=== PATIENT | female | born 1965 | race Caucasian/White ===

== ENCOUNTER 2019-06-29 22:37 | Emergency (ER) | payer BC ==
[2019-06-29] MEDS ORDERED: DUONEB 0.5-3 MG/3 ml Neb IH ONE (23:03)
--- NOTE | 2019-06-29 23:04 | ERPHSYRPT ---
- History of Present Illness Time Seen by Provider: 06/29/19 22:49 Source: patient Exam Limitations: no limitations Patient Subjective Stated Complaint: pt states she has had a cough for 3 weeks and rib pain for 5 days. states rib pain is worse when coughing and has been increasing. states pain is worse on the lt side and worse when trying to take a deep breath. Triage Nursing Assessment: pt alert and oriented, answers questions approp. pt ambulatory with steady gait noted. respirations nonlabored. pt not able to take deep breath when asked d/t pain in ribs. tenderness noted to bilat ribs with light palpation. Physician History: 53 years old female presented in the ER with chief complaint of 3 weeks history of ongoing nonproductive cough. She was evaluated at primary care 2 days ago, currently on doxycycline. Patient reports since starting doxycycline her cough is better but she is having bilateral lower ribs pain with deep breathing and coughing since yesterday. she describes this as a sharp nature moderate intensity pain, aggravated with movement/deep breathing/palpation and better with taking shallow breaths and being still. No fever or chills reported. Denies any shortness of breath. No URI symptoms. Cough Quality/Degree: moderate, dry cough Possible Cause: unknown cause Modifying Factors: Improves With: coughing, deep breath Associated Symptoms: chest pain/soreness, cough, No fever, No chills, No facial pain, No lightheadedness, No nasal drainage, No shortness of breath Allergies/Adverse Reactions: meperidine HCl [From Demerol] Allergy (Verified 06/29/19 22:56) Home Medications: Bupropion HCl [Wellbutrin Xl] 300 mg PO DAILY 10/19/13 [History] Hx Tetanus, Diphtheria Vaccination/Date Given: Yes Hx Influenza Vaccination/Date Given: No Hx Pneumococcal Vaccination/Date Given: No Immunizations Up to Date: Yes - Review of Systems Constitutional: No Symptoms Eyes: No Symptoms Ears, Nose, & Throat: No Symptoms Respiratory: Cough, No Wheezing Cardiac: Chest Pain Abdominal/Gastrointestinal: No Symptoms Genitourinary Symptoms: No Symptoms Musculoskeletal: Other (ribs) Skin: No Symptoms Neurological: No Symptoms Psychological: No Symptoms Endocrine: No Symptoms Hematologic/Lymphatic: No Symptoms Immunological/Allergic: No Symptoms - Past Medical History Pertinent Past Medical History: Yes Neurological History: No Pertinent History ENT History: No Pertinent History Cardiac History: No Pertinent History Respiratory History: No Pertinent History Endocrine Medical History: No Pertinent History Musculoskeletal History: No Pertinent History GI Medical History: No Pertinent History History: No Pertinent History Psycho-Social History: Depression Female Reproductive Disorders: No Pertinent History - Past Surgical History Past Surgical History: Yes Neuro Surgical History: No Pertinent History Cardiac: No Pertinent History Respiratory: No Pertinent History Gastrointestinal: Cholecystectomy Musculoskeletal: No Pertinent History Female Surgical History: Section, Hysterectomy Other Surgical History: SPINAL INFUSION 8 YEARS AGO - Social History Smoking Status: Never smoker Exposure to second hand smoke: No Drug Use: none Patient Lives Alone: No - Female History Hx Last Menstrual Period: post Hx Now: No - Nursing Vital Signs Nursing Vital Signs: Initial Vital Signs Temperature 97.5 F 06/29/19 22:42 Pulse Rate 81 06/29/19 22:42 Respiratory Rate 18 06/29/19 22:42 Blood Pressure 153/96 06/29/19 22:42 O2 Sat by Pulse Oximetry 100 06/29/19 22:42 Pain Scale Pain Intensity 9 - Physical Exam General Appearance: no apparent distress Eye Exam: eyes nml inspection Ears, Nose, Throat Exam: normal ENT inspection, TMs normal, pharynx normal Neck Exam: normal inspection, non-tender, supple, full range of motion Respiratory Exam: chest tenderness (bilateral lateral lower ribs with no crepitis/swelling/rash), lungs clear, airway intact, No respiratory distress Cardiovascular Exam: regular rate/rhythm, normal heart sounds, normal peripheral pulses Gastrointestinal/Abdomen Exam: soft, normal bowel sounds, No tenderness Back Exam: normal inspection, normal range of motion Extremity Exam: normal inspection, normal range of motion Neurologic Exam: alert, oriented x 3, cooperative Skin Exam: normal color SpO2 Interpretation: normal SpO2: 100 O2 Delivery: Room Air Ordered Tests: Active Orders 24 hr Category Date Time Status CHEST 2 VIEWS (PA AND LAT) Stat Exams 06/29/19 22:57 Taken CBC W DIFF Stat Lab 06/29/19 23:16 Completed Peak Expiratory Flow Rate ONCE RT 06/29/19 23:09 Active Respiratory Therapy Assessment DAILY RT 06/29/19 23:09 Active Medication Summary Discontinued Medications Generic Name Dose Route Start Last Admin Trade Name Freq PRN Reason Stop Dose Admin Albuterol/Ipratropium 3 ml 06/29/19 22:59 06/29/19 23:05 Duoneb 0.5-3 Mg/3 Ml Neb IH 06/29/19 23:00 3 ml STAT ONE Administration Albuterol/Ipratropium Confirm 06/29/19 23:03 Duoneb 0.5-3 Mg/3 Ml Neb Administered 06/29/19 23:04 Dose 3 ml IH .STK-MED ONE Ketorolac Tromethamine 30 mg 06/29/19 22:59 06/29/19 23:19 Toradol 30 Mg Injection IV 06/29/19 23:00 30 mg STAT ONE Administration Ketorolac Tromethamine Confirm 06/29/19 23:16 Toradol 30 Mg Injection Administered 06/29/19 23:17 Dose 30 mg .ROUTE .STK-MED ONE Methylprednisolone Sodium Succinate 125 mg 06/29/19 22:58 06/29/19 23:19 Solu-Medrol 125 Mg IV 06/29/19 22:59 125 mg STAT ONE Administration Methylprednisolone Sodium Succinate Confirm 06/29/19 23:16 Solu-Medrol 125 Mg Administered 06/29/19 23:17 Dose 125 mg .ROUTE .STK-MED ONE Lab/Rad Data: Laboratory Result Diagrams 06/29/19 23:16 06/29/19 23:18 Laboratory Results 06/29/19 06/29/19 Range/Units 23:18 23:16 WBC 7.5 (4.0-10.5) K/mm3 RBC 4.05 L (4.1-5.4) M/mm3 Hgb 12.1 (12.0-16.0) gm/dl Hct 38.2 (35-47) % MCV 94.3 (78-100) fl MCH 29.8 (26-32) pg MCHC 31.7 L (32-36) g/dl RDW 14.5 H (11.5-14.0) % Plt Count 364 (150-450) K/mm3 MPV 9.2 (6-9.5) fl Gran % 52.1 (36.0-66.0) % Eos # (Auto) 0.11 (0-0.5) Absolute Lymphs (auto) 2.42 (1.0-4.6) Absolute Monos (auto) 1.01 (0.0-1.3) Lymphocytes % 32.4 (24.0-44.0) % Monocytes % 13.5 H (0.0-12.0) % Eosinophils % 1.5 (0.00-5.0) % Basophils % 0.5 (0.0-0.4) % Absolute Granulocytes 3.88 (1.4-6.9) Basophils # 0.04 (0-0.4) Sodium Direct 141 (138-146) mmol/L Potassium 3.6 (3.5-4.9) mmol/L Chloride 102 (98-109) mmol/L Carbon Dioxide 26 (24-29) mmol/L Venous BUN 18 (8-26) mg/dL Creatinine 0.8 (0.6-1.3) mg/dL Glucose 109 H (70-105) mg/dL Ionized Calcium 1.17 (1.12-1.32) mmol/L - Progress Progress: improved, re-examined Air Movement: good Progress Note: she is given DuoNeb along with Solu-Medrol and Toradol. On reevaluation the patient is feeling better. She still have some discomfort with deep breathing and movements of chest. I believe she has some pleuritic inflammation. I did not appreciate any focal consolidation on chest x-ray but no obvious displaced rib fractures. I were start her on short course of steroids and recommended taking Tylenol Ibuprofen as needed. I would also give her inhaler as well. Her symptoms are clearly infectious etiology, do not think cardiac in nature at all. Do not think she needs any PE workup as of right now with these symptoms. Discussed signs and was worsening Adenocard the ER which he seemed understanding. Stable for discharge. 06/29/19 23:46 Blood Culture(s) Obtained: No Antibiotics given: No Counseled pt/family regarding: lab results, diagnosis, need for follow-up, rad results - Departure Departure Disposition: Home Clinical Impression: Bronchitis Condition: Stable Critical Care Time: No Referrals: JIMMY TIMMONS MD [Primary Care Provider] - Follow Up with PCP (1-2 days for evaluation) Instructions: Cough, Adult (DC) Additional Instructions: take Tylenol/ibuprofen as needed. Follow up with primary care physician for evaluation. Return to ER for any worsening. Prescriptions: Albuterol 8 gm Mdi Hfa [Ventolin Hfa MDI] 8 gm IH Q4H #1 hfa.[email or web address] Prednisone 20 mg [Deltasone 20 mg] 60 mg PO DAILY #15 tablet
[2019-06-29] MEDS: DUONEB 0.5-3 MG/3 ml Neb IH ONE (23:05)
[2019-06-29] MEDS ORDERED: solu-MEDROL 125 MG ONE (23:16)
[2019-06-29] MEDS ORDERED: TORAdol 30 mg Injection ONE (23:16)
[2019-06-29 23:18] VITALS: PULSE 79
[2019-06-29] MEDS: TORAdol 30 mg Injection IV ONE (23:19)
[2019-06-29] MEDS: solu-MEDROL 125 MG IV ONE (23:19)
[2019-06-29 23:22] LABS: Absolute Neutrophil Ct (ANC) 3.88 (1.4-6.9); BASOPHIL % 0.5 % (0.0-0.4); Basophil (Absolute #) 0.04 (0-0.4); Eosinophil % 1.5 % (0.00-5.0); Eosinophil (Absolute #) 0.11 (0-0.5); Hematocrit 38.2 % (35-47); Hemoglobin 12.1 gm/dl (12.0-16.0); Lymphocyte (Absolute #) 2.42 (1.0-4.6); Lymphocytes % 32.4 % (24.0-44.0); Mean Cell Volume 94.3 fl (78-100); Mean Corpuscular Hgb Concent. 31.7 g/dl (32-36); Mean Platelet Volume 9.2 fl (6-9.5); Monocyte (Absolute #) 1.01 (0.0-1.3); Monocytes % 13.5 % (0.0-12.0); Neutrophil % 52.1 % (36.0-66.0); Platelet Count 364 K/mm3 (150-450); Red Blood Count 4.05 M/mm3 (4.1-5.4); Red Cell Distribution Width 14.5 % (11.5-14.0); White Blood Count 7.5 K/mm3 (4.0-10.5)
[2019-06-29 23:24] LABS: Mean Corpuscular Hemoglobin 29.8 pg (26-32)
[2019-06-29 23:30] LABS: ISTAT CREA 0.8 mg/dL (0.6-1.3)
[2019-06-29 23:55] VITALS: BP 122/81; O2SAT 97
[2019-06-30] MEDS ORDERED: Ventolin Hfa MDI IH ONE (00:04)
[2019-06-30] MEDS: Ventolin Hfa MDI IH ONE (00:09)
--- NOTE | 2019-06-30 08:46 | XRAY ---
Indication: Cough and fever 2 weeks. Comparison: October 19, 2013. PA/lateral chest less inflated with new left base subsegmental atelectasis/scarring. Stable left mid lung calcified granuloma. No focal infiltrate, consolidation, or large effusion. Heart is not enlarged. Bony thorax intact. Impression: Nonacute chest with again evidence for old granulomatous disease.
== END 2019-06-30 00:21 | disposition home or self-care (01) ==
LOC: ED 22:37
DX: J40 Bronchitis, not specified as acute or chronic (principal)
CPT/HCPCS: 36415; 71046; 80047; 85025; 94150; 94640; 96374; 96375; 99284; J1885; J2930; A9270-GY

== ENCOUNTER 2024-08-31 17:13 | Emergency (ER) | payer OTHER ==
[2024-08-31 17:24] VITALS: PULSE 114; TEMP 100.1
--- NOTE | 2024-08-31 17:33 | ERPHSYRPT ---
- History of Present Illness Time Seen by Provider: 08/31/24 17:33 Source: patient, family Exam Limitations: no limitations Patient Subjective Stated Complaint: Pt c/o of cough, body aches, thigh aches, and vomiting Triage Nursing Assessment: Pt was brought to the ER by her son, tachycardic, febrile, rates pain as 9/10, pulses normal, skin pale/hot/d, no difficulty breathing, thigh pain, vomiting, denies diarrhea, doesn't appear to be in any di stress Physician History: Pt had onset of vomiting and body aches today especially both thighs and fever. Discussed with pt and available family risks and benefits of testing/Tx including CBC, CMP, UA, Amylase, Lipase, lactate, CPK, swabs for Covid, RSV, Flu and Strep, pain med - toradol, ondansitron, IVF, , and they wish to proceed so these are ordered. Son is here in ER as independent source for Hx. Results discussed with pt and available family. Timing/Duration: today Severity: moderate Associated Symptoms: nausea, vomiting, fever, loss of appetite, malaise Allergies/Adverse Reactions: meperidine HCl [From Demerol] Allergy (Verified 08/31/24 17:24) Home Medications: buPROPion HCL [Wellbutrin Xl] 450 mg PO DAILY 10/19/13 [History] Hx Tetanus, Diphtheria Vaccination/Date Given: Yes Hx Influenza Vaccination/Date Given: No Hx Pneumococcal Vaccination/Date Given: No Travel Risk - International Travel Have you traveled outside of the country in past 3 weeks: No - Emerging Infectious Disease Are you exhibiting symptoms associated with any current EIDs: Yes Symptoms: Headaches/Body Aches/, Vomitting - Review of Systems Constitutional: Fever, No Chills Eyes: No Symptoms Ears, Nose, & Throat: No Symptoms Respiratory: No Cough, No Dyspnea Cardiac: No Chest Pain, No Edema, No Syncope Abdominal/Gastrointestinal: Nausea, Vomiting, No Abdominal Pain, No Diarrhea Genitourinary Symptoms: No Dysuria Musculoskeletal: No Back Pain, No Neck Pain Skin: No Rash Neurological: No Dizziness, No Focal Weakness, No Sensory Changes Psychological: No Symptoms Endocrine: No Symptoms Hematologic/Lymphatic: No Symptoms Immunological/Allergic: No Symptoms All Other Systems: Reviewed and Negative - Past Medical History Pertinent Past Medical History: Yes Neurological History: No Pertinent History ENT History: No Pertinent History Cardiac History: No Pertinent History Respiratory History: No Pertinent History Endocrine Medical History: No Pertinent History Musculoskeletal History: No Pertinent History GI Medical History: No Pertinent History History: No Pertinent History Psycho-Social History: Depression Female Reproductive Disorders: No Pertinent History - Past Surgical History Past Surgical History: Yes Neuro Surgical History: No Pertinent History Cardiac: No Pertinent History Respiratory: No Pertinent History Gastrointestinal: Cholecystectomy Musculoskeletal: No Pertinent History Female Surgical History: Section, Hysterectomy Other Surgical History: SPINAL INFUSION 8 YEARS AGO - Social History Smoking Status: Never smoker Exposure to second hand smoke: No Drug Use: none Patient Lives Alone: No - Social Determinants of Health Will the patient participate in the screening: Yes Do you worry about a steady place to live?: No Do you have any problems with any of the following?: No known problems In the past 12 months,have you had to go without utilities?: No Transportation Issues: No Has anyone in your support network made you feel unsafe?: No Have you or anyone in your house had to go without enough: No - Nursing Vital Signs Nursing Vital Signs: Initial Vital Signs Temperature 100.1 F 08/31/24 17:19 Pulse Rate 114 H 08/31/24 17:19 Blood Pressure 120/71 08/31/24 17:19 O2 Sat by Pulse Oximetry 96 08/31/24 17:19 Pain Scale Pain Intensity 9 - Physical Exam General Appearance: no apparent distress, alert Eye Exam: PERRL/EOMI, eyes nml inspection Ears, Nose, Throat Exam: normal ENT inspection, TMs normal, pharynx normal, moist mucous membranes Neck Exam: normal inspection, non-tender, supple, full range of motion Respiratory Exam: normal breath sounds, lungs clear, No respiratory distress Cardiovascular Exam: regular rate/rhythm, normal heart sounds, normal peripheral pulses Gastrointestinal/Abdomen Exam: soft, normal bowel sounds, No tenderness, No mass Pelvic Exam: deferred Rectal Exam: deferred Back Exam: normal inspection, normal range of motion, No CVA tenderness, No vertebral tenderness Extremity Exam: normal inspection, normal range of motion, pelvis stable Neurologic Exam: alert, oriented x 3, cooperative, normal mood/affect, nml cerebellar function, nml station & gait, sensation nml, No motor deficits Skin Exam: normal color, warm, dry, No rash Lymphatic Exam: No adenopathy SpO2 Interpretation: normal SpO2: 96 O2 Delivery: Room Air - Course Nursing assessment & vital signs reviewed: Yes - Radiology Exams Chest X-ray Interpretation: Interpreted by me, Infiltrates (bilateral.) Ordered Tests: Active Orders 24 hr Category Date Time Status IV Insertion STAT Care 08/31/24 17:59 Active CHEST 1 VIEW (PORTABLE) Stat Exams 08/31/24 20:59 Taken AMYLASE Stat Lab 08/31/24 19:00 Completed CBC W DIFF Stat Lab 08/31/24 19:00 Completed CK (IN-HOUSE) [CK-Creatinine Phosphokinase] Stat Lab 08/31/24 19:00 Completed CMP Stat Lab 08/31/24 19:00 Completed CULTURE,URINE Stat Lab 08/31/24 20:56 Received LIPASE Stat Lab 08/31/24 19:00 Completed Lactic Acid Stat Lab 08/31/24 18:45 Completed UA W/RFX UR CULTURE Stat Lab 08/31/24 20:56 Completed Medication Summary Generic Name Dose Route Start Last Admin Trade Name Freq PRN Reason Stop Dose Admin Ceftriaxone Sodium 1 gm in 100 mls @ 200 mls/hr 08/31/24 21:45 08/31/24 21:48 Rocephin 1 Gm / 100 Ml Nacl IV 08/31/24 22:14 200 mls/hr STAT ONE 200 mls/hr Administration Discontinued Medications Generic Name Dose Route Start Last Admin Trade Name Freq PRN Reason Stop Dose Admin Sodium Chloride 1,000 mls @ 999 mls/hr 08/31/24 17:59 08/31/24 18:41 Sodium Chloride 0.9% 1000 Ml IV 08/31/24 18:59 999 mls/hr .Q1H1M STA Administration Sodium Chloride Confirm 08/31/24 18:37 Sodium Chloride 0.9% 1000 Ml Administered 08/31/24 18:38 Dose 1,000 mls @ ud .ROUTE .STK-MED ONE Ceftriaxone Sodium Confirm 08/31/24 21:47 Rocephin 1 Gm / 100 Ml Nacl Administered 08/31/24 21:48 Dose 1 gm in 100 mls @ ud IV .STK-MED ONE Ketorolac Tromethamine 30 mg 08/31/24 17:59 08/31/24 18:44 Ketorolac Tromethamine 30 Mg/Ml Inj IV 08/31/24 18:00 30 mg STAT ONE Administration Ketorolac Tromethamine Confirm 08/31/24 18:37 Ketorolac Tromethamine 30 Mg/Ml Inj Administered 08/31/24 18:38 Dose 30 mg .ROUTE .STK-MED ONE Ondansetron HCl 4 mg 08/31/24 17:59 08/31/24 18:43 Ondansetron Hcl 4 Mg/2 Ml Vial IV 08/31/24 18:00 4 mg STAT ONE Administration Ondansetron HCl Confirm 08/31/24 18:37 Ondansetron Hcl 4 Mg/2 Ml Vial Administered 08/31/24 18:38 Dose 4 mg .ROUTE .K-[facility] ONE Lab/Rad Data: Laboratory Result Diagrams 08/31/24 19:00 08/31/24 19:00 Laboratory Results 08/31/24 08/31/24 08/31/24 Range/Units 20:56 19:00 19:00 WBC (3.98-10.04) x10^3/uL RBC (3.93-5.22) x10^6/uL Hgb (11.2-15.7) g/dL Hct (34.1-44.9) % MCV (79.4-94.8) fL MCH (25.6-32.2) pg MCHC (32.2-35.5) g/dL RDW (11.7-14.4) % Plt Count (182-369) x10^3/uL MPV (9.4-12.3) fL Gran % (34.0-71.1) % Immature Gran % (Auto) (0.001-0.429) % Nucleat RBC Rel Count (0.00-0.2) % Eos # (Auto) (0.04-0.36) x10^3/uL Immature Gran # (Auto) (0.001-0.031) x10^3u/L Absolute Lymphs (auto) (1.18-3.74) x10^3/uL Absolute Monos (auto) (0.24-0.86) x10^3/uL Absolute Nucleated RBC (0.00-0.012) x10^3u/L Lymphocytes % (19.3-51.7) % Monocytes % (4.7-12.5) % Eosinophils % (0.7-5.8) % Basophils % (0.1-1.2) % Absolute Granulocytes (1.56-6.13) x10^3/uL Basophils # (0.01-0.08) x10^3/uL Sodium 136 (135-145) mmol/L Potassium 3.5 (3.5-5.1) mmol/L Chloride 105 (98-107) mmol/L Carbon Dioxide 26 (22-30) mmol/L Anion Gap 8.9 (5-15) MEQ/L BUN 23 H (7-17) mg/dL Creatinine 0.96 (0.52-1.04) mg/dL Estimated GFR 67.7 ML/MIN Glucose 112 H (74-106) mg/dL Lactic Acid (0.4-2.0) Calcium 9.2 (8.4-10.2) mg/dL Total Bilirubin 1.00 (0.2-1.3) mg/dL AST 139 H (14-36) U/L ALT 70 H (0-35) U/L Alkaline Phosphatase 120 (38-126) U/L Creatine Kinase 56 (30-135) U/L Serum Total Protein 7.1 (6.3-8.2) g/dL Albumin 4.1 (3.5-5.0) g/dL Amylase 55 (30-110) U/L Lipase 55 (23-300) U/L Urine Color Dark Yellow A (Yellow) Urine Appearance Cloudy A (Clear) Urine pH 6.5 (4.6-8.0) Ur Specific [place] 1.025 (1.005-1.030) Urine Protein 30 (Negative) Urine Glucose (UA) Negative (Negative) mg/dL Urine Ketones 15 A (Negative) Urine Blood NHT (Negative) Urine Nitrite Positive A (Negative) Urine Bilirubin Negative (Negative) Urine Urobilinogen 1.0 A (0.2) mg/dL Ur Leukocyte Esterase Moderate A (Negative) U Hyaline Cast (Auto) NONE SEEN (0-2) /LPF Urine Microscopic RBC 0-2 (0-5) /HPF Urine Microscopic WBC >100 A (0-5) /HPF Ur Epithelial Cells None Seen (None Seen) /HPF Urine Bacteria Many A (None Seen) /HPF Urine Culture Reflexed YES (NO) Influenza Type A Ag (NEGATIVE) Influenza Type B Ag (NEGATIVE) RSV (PCR) (NEGATIVE) SARS-CoV-2 (PCR) (NEGATIVE) Group A Strep Antibody (NEGATIVE) Slides for Path Review 08/31/24 08/31/24 08/31/24 Range/Units 19:00 18:45 18:13 WBC 10.3 H (3.98-10.04) x10^3/uL RBC 4.17 (3.93-5.22) x10^6/uL Hgb 12.3 (11.2-15.7) g/dL Hct 37.2 (34.1-44.9) % MCV 89.2 (79.4-94.8) fL MCH 29.5 (25.6-32.2) pg MCHC 33.1 (32.2-35.5) g/dL RDW 13.7 (11.7-14.4) % Plt Count 269 (182-369) x10^3/uL MPV 9.5 (9.4-12.3) fL Gran % 92.5 H (34.0-71.1) % Immature Gran % (Auto) 0.6 H (0.001-0.429) % Nucleat RBC Rel Count 0.0 (0.00-0.2) % Eos # (Auto) 0 L (0.04-0.36) x10^3/uL Immature Gran # (Auto) 0.06 H (0.001-0.031) x10^3u/L Absolute Lymphs (auto) 0.51 L (1.18-3.74) x10^3/uL Absolute Monos (auto) 0.18 L (0.24-0.86) x10^3/uL Absolute Nucleated RBC 0.00 (0.00-0.012) x10^3u/L Lymphocytes % 4.9 L (19.3-51.7) % Monocytes % 1.7 L (4.7-12.5) % Eosinophils % 0.0 L (0.7-5.8) % Basophils % 0.3 (0.1-1.2) % Absolute Granulocytes 9.53 H (1.56-6.13) x10^3/uL Basophils # 0.03 (0.01-0.08) x10^3/uL Sodium (135-145) mmol/L Potassium (3.5-5.1) mmol/L Chloride (98-107) mmol/L Carbon Dioxide (22-30) mmol/L Anion Gap (5-15) MEQ/L BUN (7-17) mg/dL Creatinine (0.52-1.04) mg/dL Estimated GFR ML/MIN Glucose (74-106) mg/dL Lactic Acid 1.1 (0.4-2.0) Calcium (8.4-10.2) mg/dL Total Bilirubin (0.2-1.3) mg/dL AST (14-36) U/L ALT (0-35) U/L Alkaline Phosphatase (38-126) U/L Creatine Kinase (30-135) U/L Serum Total Protein (6.3-8.2) g/dL Albumin (3.5-5.0) g/dL Amylase (30-110) U/L Lipase (23-300) U/L Urine Color (Yellow) Urine Appearance (Clear) Urine pH (4.6-8.0) Ur Specific [place] (1.005-1.030) Urine Protein (Negative) Urine Glucose (UA) (Negative) mg/dL Urine Ketones (Negative) Urine Blood (Negative) Urine Nitrite (Negative) Urine Bilirubin (Negative) Urine Urobilinogen (0.2) mg/dL Ur Leukocyte Esterase (Negative) U Hyaline Cast (Auto) (0-2) /LPF Urine Microscopic RBC (0-5) /HPF Urine Microscopic WBC (0-5) /HPF Ur Epithelial Cells (None Seen) /HPF Urine Bacteria (None Seen) /HPF Urine Culture Reflexed (NO) Influenza Type A Ag NEGATIVE (NEGATIVE) Influenza Type B Ag NEGATIVE (NEGATIVE) RSV (PCR) NEGATIVE (NEGATIVE) SARS-CoV-2 (PCR) NEGATIVE (NEGATIVE) Group A Strep Antibody NOT DETECTED (NEGATIVE) Slides for Path Review YES - Progress Progress: improved, re-examined Progress Note: 08/31/24 21:08 awaiting return of UA to make sure no UTI as cause but avoided cath for pt. . 08/31/24 21:54 there is a significant UTI and we will begin IV AB Tx which will add some time to DC. 08/31/24 22:02 discussed levaquin for pts UTI and pneumonia and she agrees to proceed. Pt prefers outpt Tx rather than obs or admission in hospital after discussion of risks/benefits including that additional pathology not detected could be present and has the capacity to make this choice. 08/31/24 22:03 Counseled pt/family regarding: lab results, diagnosis, need for follow-up Medical Desision Making - Independent Historian Additional History obtained from: Child - Discussion of managment Reviewed:: Test results, Need for additional workup Agreed on:: Treatment plan, need for follow-up - Diagnostic Testing Diagnostic test were ordered, analyzed, and reviewed by me: Yes Radiological Interpretation: Interpreted by me - Risk of complications The pt has a mod risk of morbidity or mortality based on: Need for prescription drug management The pt has a high risk of morbidity or mortality based on: Decision regarding hospitilization or escalation of hosp level of care - Departure Departure Disposition: Home Clinical Impression: UTI (urinary tract infection), Pneumonia Condition: Good Critical Care Time: No Referrals: JIMMY TIMMONS MD [Primary Care Provider] - Follow up/PCP as directed Instructions: Pneumonia, Adult (DC), Urinary tract infection in adults - ED discharge instructions Additional Instructions: Although we have identified the lungs and urinary tract infections to treat, The infections you have can progress to develop complications in some cases or there could be additional conditions that we have not yet detected - so followup JARED with your DrDanny is important to make sure you are improving. Return meantime if vomiting, dizziness, short of breath or any other symptoms of concern. Prescriptions: Levofloxacin [Levofloxacin 500 MG Tablet] 500 mg PO DAILY #10 tablet
[2024-08-31] MEDS ORDERED: TORAdol 30 mg Injection ONE (18:37)
[2024-08-31] MEDS ORDERED: Sodium Chloride 0.9% 1000 ML 1,000 ML ONE (18:37)
[2024-08-31] MEDS ORDERED: Zofran 4 MG/2 ML VIAL ONE (18:37)
[2024-08-31] MEDS: Sodium Chloride 0.9% 1000 ML 1,000 ML IV STA (18:41)
[2024-08-31] MEDS: Zofran 4 MG/2 ML VIAL IV ONE (18:43)
[2024-08-31] MEDS: TORAdol 30 mg Injection IV ONE (18:44)
[2024-08-31 18:45] LABS: Group A Strep NOT DETECTED (NEGATIVE)
[2024-08-31 18:57] LABS: INFLUENZA A NEGATIVE (NEGATIVE); INFLUENZA B NEGATIVE (NEGATIVE); RESPIRATORY SYNCTIAL VIRUS NEGATIVE (NEGATIVE); SARS-CoV-2 Xpert Express NEGATIVE (NEGATIVE)
[2024-08-31 19:19] LABS: Absolute Neutrophil Ct (ANC) 9.53 x10^3/uL (1.56-6.13); BASOPHIL % 0.3 % (0.1-1.2); Basophil (Absolute #) 0.03 x10^3/uL (0.01-0.08); Eosinophil (Absolute #) 0 x10^3/uL (0.04-0.36); Hematocrit 37.2 % (34.1-44.9); Hemoglobin 12.3 g/dL (11.2-15.7); IMMATURE GRAN # 0.06 x10^3u/L (0.001-0.031); IMMATURE GRAN % 0.6 % (0.001-0.429); Lymphocyte (Absolute #) 0.51 x10^3/uL (1.18-3.74); Lymphocytes % 4.9 % (19.3-51.7); Mean Cell Volume 89.2 fL (79.4-94.8); Mean Corpuscular Hemoglobin 29.5 pg (25.6-32.2); Mean Corpuscular Hgb Concent. 33.1 g/dL (32.2-35.5); Mean Platelet Volume 9.5 fL (9.4-12.3); Monocyte (Absolute #) 0.18 x10^3/uL (0.24-0.86); Monocytes % 1.7 % (4.7-12.5); Neutrophil % 92.5 % (34.0-71.1); Platelet Count 269 x10^3/uL (182-369); Red Blood Count 4.17 x10^6/uL (3.93-5.22); Red Cell Distribution Width 13.7 % (11.7-14.4); White Blood Count 10.3 x10^3/uL (3.98-10.04)
[2024-08-31 19:32] LABS: ALBUMIN 4.1 g/dL (3.5-5.0); ANION GAP 8.9 MEQ/L (5-15); Calcium 9.2 mg/dL (8.4-10.2); Creatinine 1 0.96 mg/dL (0.52-1.04); EST GLOMERULAR FILTRATION RATE 67.7 ML/MIN; Potassium 3.5 mmol/L (3.5-5.1); Total Protein 7.1 g/dL (6.3-8.2)
[2024-08-31 20:56] VITALS: O2SAT 96
[2024-08-31 21:09] LABS: Appearance Cloudy (Clear); Bacteria Many /HPF (None Seen); Bilirubin Negative (Negative); Blood NHT (Negative); Epithelial Cells None Seen /HPF (None Seen); Glucose, Urine Negative (Negative); Hyaline Casts NONE SEEN /LPF (0-2); Ketones 15 (Negative); Leukocyte Esterase Moderate (Negative); Nitrite Positive (Negative); Ph 6.5 (4.6-8.0); Protein,Urine Dip 30 (Negative); RBC 0-2 /HPF (0-5); Specific Gravity 1.025 (1.005-1.030); WBC >100 /HPF (0-5)
[2024-08-31 21:25] LABS: Slide Review 1 YES
[2024-08-31] MEDS ORDERED: ROCEPHIN 1 GM / 100 ML NaCl 1 GM/100 ML IVPB IV ONE (21:47)
[2024-08-31] MEDS: ROCEPHIN 1 GM / 100 ML NaCl 1 GM/100 ML IVPB IV ONE (21:48)
[2024-08-31 22:09] VITALS: BP 102/68
--- NOTE | 2024-09-01 08:40 | XRAY ---
Indication: Cough. Comparison: June 29, 2019 Portable chest now demonstrates subtle right base infiltrate versus atelectasis. Remaining heart and lungs unremarkable again with incidental left lung calcified granuloma. Bony thorax intact.
== END 2024-08-31 22:35 | disposition home or self-care (01) ==
LOC: ED 17:13
DX: N39.0 Urinary tract infection, site not specified (principal); J18.9 Pneumonia, unspecified organism; R11.2 Nausea with vomiting, unspecified; M79.10 Myalgia, unspecified site; R50.9 Fever, unspecified; Z79.899 Other long term (current) drug therapy
CPT/HCPCS: 0241U; 36415; 71045; 80053; 81001; 82150; 82550; 83605; 83690; 85025; 87077; 87086; 87186; 87651; 96374; 96375; 99285; 99284; J0696; J1885; J2405

== ENCOUNTER 2024-09-06 12:55 | Emergency (ER) | payer OTHER ==
--- NOTE | 2024-09-06 13:19 | ERPHSYRPT ---
- History of Present Illness Time Seen by Provider: 09/06/24 13:19 Historian: patient Exam Limitations: no limitations Physician History: This is a 59-year-old white female patient brought to the emergency department by the private vehicle secondary to persistent symptoms of headache, nausea, vomiting and diarrhea. She denies chest pain. She denies abdominal pain. Her primary concern is the nausea as well as headache. She denies photophobia. She denies neck pain. She was seen in this emergency department on 08/31/2024 and discharged to home with a diagnosis of pneumonia and urinary tract infection. She was treated with Levaquin which she states she did not tolerate. It made her sick. The Levaquin was canceled by her primary care provider and the patient was started on doxycycline and Pyridium. Both of these medications made her sick as well. Patient has a history anxiety and depression. Timing/Duration: day(s) (Present for 6 to 7 days) Activities at Onset: none Severity of Pain-Max: none Severity of Pain-Current: none Modifying Factors: Improves With: vomiting Associated Symptoms: diarrhea, headache, loss of appetite, nausea, vomiting, weakness, No chest pain, No neck pain, No shortness of breath Previous symptoms: same symptoms as today, recently seen, recently treated Allergies/Adverse Reactions: meperidine HCl [From Demerol] Allergy (Verified 08/31/24 17:24) Home Medications: buPROPion HCL [Wellbutrin Xl] 450 mg PO DAILY 10/19/13 [History] Phenazopyridine HCl 200 mg [Pyridium 200 mg] 200 mg PO DAILY 09/06/24 [History] Hx Tetanus, Diphtheria Vaccination/Date Given: Yes Hx Influenza Vaccination/Date Given: No Hx Pneumococcal Vaccination/Date Given: No Travel Risk - International Travel Have you traveled outside of the country in past 3 weeks: No - Emerging Infectious Disease Are you exhibiting symptoms associated with any current EIDs: Yes Symptoms: Headaches/Body Aches/, Vomitting - Review of Systems Constitutional: Weakness Eyes: No Symptoms Ears, Nose, & Throat: No Symptoms Respiratory: No Symptoms Cardiac: No Symptoms Abdominal/Gastrointestinal: Nausea, Vomiting, Diarrhea, Appetite Changes, No Abdominal Pain Genitourinary Symptoms: No Symptoms Musculoskeletal: Arthralgias, Myalgias Skin: No Symptoms Neurological: Headache Psychological: No Symptoms Endocrine: No Symptoms Hematologic/Lymphatic: No Symptoms Immunological/Allergic: No Symptoms All Other Systems: Reviewed and Negative - Past Medical History Pertinent Past Medical History: Yes Neurological History: No Pertinent History ENT History: No Pertinent History Cardiac History: No Pertinent History Respiratory History: No Pertinent History Endocrine Medical History: No Pertinent History Musculoskeletal History: No Pertinent History GI Medical History: No Pertinent History History: No Pertinent History Psycho-Social History: Depression Female Reproductive Disorders: No Pertinent History - Past Surgical History Past Surgical History: Yes Neuro Surgical History: No Pertinent History Cardiac: No Pertinent History Respiratory: No Pertinent History Gastrointestinal: Cholecystectomy Musculoskeletal: No Pertinent History Female Surgical History: Section, Hysterectomy Other Surgical History: SPINAL INFUSION 8 YEARS AGO - Social History Smoking Status: Never smoker Exposure to second hand smoke: No Drug Use: none Patient Lives Alone: No - Social Determinants of Health Will the patient participate in the screening: Yes Do you worry about a steady place to live?: No In the past 12 months,have you had to go without utilities?: No Transportation Issues: No Has anyone in your support network made you feel unsafe?: No Have you or anyone in your house had to go without enough: No - Nursing Vital Signs Nursing Vital Signs: Initial Vital Signs Temperature 97.7 F 09/06/24 13:14 Pulse Rate 84 09/06/24 13:14 Blood Pressure 151/96 09/06/24 13:14 O2 Sat by Pulse Oximetry 97 09/06/24 13:14 Pain Scale Pain Intensity 9 - Physical Exam General Appearance: no apparent distress, alert, anxiety Eye Exam: PERRL/EOMI, eyes nml inspection Ears, Nose, Throat Exam: normal ENT inspection, moist mucous membranes Neck Exam: normal inspection, non-tender, supple, full range of motion Respiratory Exam: normal breath sounds, lungs clear, airway intact, No chest tenderness, No respiratory distress Cardiovascular Exam: regular rate/rhythm, normal heart sounds, normal peripheral pulses Gastrointestinal/Abdomen Exam: soft, normal bowel sounds, tenderness Pelvic Exam: not done Rectal Exam: not done Back Exam: normal inspection, normal range of motion, No CVA tenderness, No vertebral tenderness Extremity Exam: normal inspection, normal range of motion, pelvis stable Neurologic Exam: alert, oriented x 3, cooperative, licensed architect II-XII nml as tested, sensation nml Skin Exam: normal color, warm, dry Lymphatic Exam: No adenopathy SpO2 Interpretation: normal O2 Delivery: Room Air - Course Nursing assessment & vital signs reviewed: Yes Ordered Tests: Active Orders 24 hr Category Date Time Status IV Insertion STAT Care 09/06/24 14:16 Active CHEST 1 VIEW (PORTABLE) Stat Exams 09/06/24 14:50 Taken HEAD WITHOUT CONTRAST [CT] Stat Exams 09/06/24 14:50 Completed AMYLASE Stat Lab 09/06/24 14:30 Completed CBC W DIFF Stat Lab 09/06/24 14:16 Completed CMP Stat Lab 09/06/24 14:30 Completed LIPASE Stat Lab 09/06/24 14:30 Completed Lactic Acid Stat Lab 09/06/24 14:38 Completed MONO SCREEN Stat Lab 09/06/24 14:30 Completed TROPONIN Q4H Lab 09/06/24 14:30 Completed TROPONIN Q4H Lab 09/06/24 18:30 Ordered TROPONIN Q4H Lab 09/06/24 22:30 Ordered UA W/RFX UR CULTURE Stat Lab 09/06/24 14:17 Completed Medication Summary Discontinued Medications Generic Name Dose Route Start Last Admin Trade Name Jasmeetq PRN Reason Stop Dose Admin Sodium Chloride 1,000 mls @ 999 mls/hr 09/06/24 14:16 09/06/24 15:44 Sodium Chloride 0.9% 1000 Ml IV 09/06/24 15:16 Infused .Q1H1M STA Infusion Sodium Chloride Confirm 09/06/24 14:33 Sodium Chloride 0.9% 1000 Ml Administered 09/06/24 14:34 Dose 1,000 mls @ ud .ROUTE .STK-MED ONE Ketorolac Tromethamine 30 mg 09/06/24 14:51 09/06/24 15:25 Ketorolac Tromethamine 30 Mg/Ml Inj IV 09/06/24 14:52 30 mg STAT ONE Administration Ketorolac Tromethamine Confirm 09/06/24 15:17 Ketorolac Tromethamine 30 Mg/Ml Inj Administered 09/06/24 15:18 Dose 30 mg .ROUTE .STK-MED ONE Ondansetron HCl 4 mg 09/06/24 14:16 09/06/24 14:37 Ondansetron Hcl 4 Mg/2 Ml Vial IV 09/06/24 14:17 4 mg STAT ONE Administration Ondansetron HCl Confirm 09/06/24 14:33 Ondansetron Hcl 4 Mg/2 Ml Vial Administered 09/06/24 14:34 Dose 4 mg .ROUTE .STK-MED ONE Pantoprazole Sodium 40 mg 09/06/24 14:16 09/06/24 14:37 Pantoprazole 40 Mg Vial IV 09/06/24 14:17 40 mg STAT ONE Administration Pantoprazole Sodium Confirm 09/06/24 14:33 Pantoprazole 40 Mg Vial Administered 09/06/24 14:34 Dose 40 mg IV .STK-MED ONE Lab/Rad Data: Laboratory Result Diagrams 09/06/24 14:16 09/06/24 14:30 Laboratory Results 09/06/24 09/06/24 09/06/24 Range/Units 14:38 14:35 14:30 WBC (3.98-10.04) x10^3/uL RBC (3.93-5.22) x10^6/uL Hgb (11.2-15.7) g/dL Hct (34.1-44.9) % MCV (79.4-94.8) fL MCH (25.6-32.2) pg MCHC (32.2-35.5) g/dL RDW (11.7-14.4) % Plt Count (182-369) x10^3/uL MPV (9.4-12.3) fL Gran % (34.0-71.1) % Immature Gran % (Auto) (0.001-0.429) % Nucleat RBC Rel Count (0.00-0.2) % Eos # (Auto) (0.04-0.36) x10^3/uL Immature Gran # (Auto) (0.001-0.031) x10^3u/L Absolute Lymphs (auto) (1.18-3.74) x10^3/uL Absolute Monos (auto) (0.24-0.86) x10^3/uL Absolute Nucleated RBC (0.00-0.012) x10^3u/L Lymphocytes % (19.3-51.7) % Monocytes % (4.7-12.5) % Eosinophils % (0.7-5.8) % Basophils % (0.1-1.2) % Absolute Granulocytes (1.56-6.13) x10^3/uL Basophils # (0.01-0.08) x10^3/uL Sodium (135-145) mmol/L Potassium (3.5-5.1) mmol/L Chloride (98-107) mmol/L Carbon Dioxide (22-30) mmol/L Anion Gap (5-15) MEQ/L BUN (7-17) mg/dL Creatinine (0.52-1.04) mg/dL Estimated GFR ML/MIN Glucose (74-106) mg/dL Lactic Acid 0.8 (0.4-2.0) Calcium (8.4-10.2) mg/dL Total Bilirubin (0.2-1.3) mg/dL AST (14-36) U/L ALT (0-35) U/L Alkaline Phosphatase (38-126) U/L Troponin I (0.000-0.033) ng/mL Serum Total Protein (6.3-8.2) g/dL Albumin (3.5-5.0) g/dL Amylase (30-110) U/L Lipase (23-300) U/L Urine Color (Yellow) Urine Appearance (Clear) Urine pH (4.6-8.0) Ur Specific [place] (1.005-1.030) Urine Protein (Negative) Urine Glucose (UA) (Negative) mg/dL Urine Ketones (Negative) Urine Blood (Negative) Urine Nitrite (Negative) Urine Bilirubin (Negative) Urine Urobilinogen (0.2) mg/dL Ur Leukocyte Esterase (Negative) U Hyaline Cast (Auto) (0-2) /LPF Urine Microscopic RBC (0-5) /HPF Urine Microscopic WBC (0-5) /HPF Ur Epithelial Cells (None Seen) /HPF Urine Bacteria (None Seen) /HPF Urine Culture Reflexed (NO) Monoscreen NEGATIVE (NEGATIVE) Influenza Type A Ag NEGATIVE (NEGATIVE) Influenza Type B Ag NEGATIVE (NEGATIVE) RSV (PCR) NEGATIVE (NEGATIVE) SARS-CoV-2 (PCR) NEGATIVE (NEGATIVE) 09/06/24 09/06/24 09/06/24 Range/Units 14:30 14:30 14:17 WBC (3.98-10.04) x10^3/uL RBC (3.93-5.22) x10^6/uL Hgb (11.2-15.7) g/dL Hct (34.1-44.9) % MCV (79.4-94.8) fL MCH (25.6-32.2) pg MCHC (32.2-35.5) g/dL RDW (11.7-14.4) % Plt Count (182-369) x10^3/uL MPV (9.4-12.3) fL Gran % (34.0-71.1) % Immature Gran % (Auto) (0.001-0.429) % Nucleat RBC Rel Count (0.00-0.2) % Eos # (Auto) (0.04-0.36) x10^3/uL Immature Gran # (Auto) (0.001-0.031) x10^3u/L Absolute Lymphs (auto) (1.18-3.74) x10^3/uL Absolute Monos (auto) (0.24-0.86) x10^3/uL Absolute Nucleated RBC (0.00-0.012) x10^3u/L Lymphocytes % (19.3-51.7) % Monocytes % (4.7-12.5) % Eosinophils % (0.7-5.8) % Basophils % (0.1-1.2) % Absolute Granulocytes (1.56-6.13) x10^3/uL Basophils # (0.01-0.08) x10^3/uL Sodium 138 (135-145) mmol/L Potassium 3.9 (3.5-5.1) mmol/L Chloride 105 (98-107) mmol/L Carbon Dioxide 25 (22-30) mmol/L Anion Gap 12.5 (5-15) MEQ/L BUN 21 H (7-17) mg/dL Creatinine 0.67 (0.52-1.04) mg/dL Estimated GFR 99.4 ML/MIN Glucose 122 H (74-106) mg/dL Lactic Acid (0.4-2.0) Calcium 9.7 (8.4-10.2) mg/dL Total Bilirubin 0.50 (0.2-1.3) mg/dL AST 40 H (14-36) U/L ALT 76 H (0-35) U/L Alkaline Phosphatase 155 H (38-126) U/L Troponin I < 0.012 (0.000-0.033) ng/mL Serum Total Protein 6.2 L (6.3-8.2) g/dL Albumin 3.6 (3.5-5.0) g/dL Amylase 44 (30-110) U/L Lipase 50 (23-300) U/L Urine Color Yellow (Yellow) Urine Appearance Clear (Clear) Urine pH 6.5 (4.6-8.0) Ur Specific [place] 1.020 (1.005-1.030) Urine Protein Negative (Negative) Urine Glucose (UA) Negative (Negative) mg/dL Urine Ketones Negative (Negative) Urine Blood Negative (Negative) Urine Nitrite Negative (Negative) Urine Bilirubin Negative (Negative) Urine Urobilinogen 0.2 (0.2) mg/dL Ur Leukocyte Esterase Negative (Negative) U Hyaline Cast (Auto) NONE SEEN (0-2) /LPF Urine Microscopic RBC 0-2 (0-5) /HPF Urine Microscopic WBC 0-2 (0-5) /HPF Ur Epithelial Cells None Seen (None Seen) /HPF Urine Bacteria None Seen (None Seen) /HPF Urine Culture Reflexed NO (NO) Monoscreen (NEGATIVE) Influenza Type A Ag (NEGATIVE) Influenza Type B Ag (NEGATIVE) RSV (PCR) (NEGATIVE) SARS-CoV-2 (PCR) (NEGATIVE) 09/06/24 Range/Units 14:16 WBC 12.3 H (3.98-10.04) x10^3/uL RBC 4.04 (3.93-5.22) x10^6/uL Hgb 11.9 (11.2-15.7) g/dL Hct 35.8 (34.1-44.9) % MCV 88.6 (79.4-94.8) fL MCH 29.5 (25.6-32.2) pg MCHC 33.2 (32.2-35.5) g/dL RDW 13.9 (11.7-14.4) % Plt Count 354 (182-369) x10^3/uL MPV 8.8 L (9.4-12.3) fL Gran % 80.2 H (34.0-71.1) % Immature Gran % (Auto) 2.1 H (0.001-0.429) % Nucleat RBC Rel Count 0.0 (0.00-0.2) % Eos # (Auto) 0.05 (0.04-0.36) x10^3/uL Immature Gran # (Auto) 0.26 H (0.001-0.031) x10^3u/L Absolute Lymphs (auto) 1.13 L (1.18-3.74) x10^3/uL Absolute Monos (auto) 0.93 H (0.24-0.86) x10^3/uL Absolute Nucleated RBC 0.00 (0.00-0.012) x10^3u/L Lymphocytes % 9.2 L (19.3-51.7) % Monocytes % 7.5 (4.7-12.5) % Eosinophils % 0.4 L (0.7-5.8) % Basophils % 0.6 (0.1-1.2) % Absolute Granulocytes 9.88 H (1.56-6.13) x10^3/uL Basophils # 0.07 (0.01-0.08) x10^3/uL Sodium (135-145) mmol/L Potassium (3.5-5.1) mmol/L Chloride (98-107) mmol/L Carbon Dioxide (22-30) mmol/L Anion Gap (5-15) MEQ/L BUN (7-17) mg/dL Creatinine (0.52-1.04) mg/dL Estimated GFR ML/MIN Glucose (74-106) mg/dL Lactic Acid (0.4-2.0) Calcium (8.4-10.2) mg/dL Total Bilirubin (0.2-1.3) mg/dL AST (14-36) U/L ALT (0-35) U/L Alkaline Phosphatase (38-126) U/L Troponin I (0.000-0.033) ng/mL Serum Total Protein (6.3-8.2) g/dL Albumin (3.5-5.0) g/dL Amylase (30-110) U/L Lipase (23-300) U/L Urine Color (Yellow) Urine Appearance (Clear) Urine pH (4.6-8.0) Ur Specific [place] (1.005-1.030) Urine Protein (Negative) Urine Glucose (UA) (Negative) mg/dL Urine Ketones (Negative) Urine Blood (Negative) Urine Nitrite (Negative) Urine Bilirubin (Negative) Urine Urobilinogen (0.2) mg/dL Ur Leukocyte Esterase (Negative) U Hyaline Cast (Auto) (0-2) /LPF Urine Microscopic RBC (0-5) /HPF Urine Microscopic WBC (0-5) /HPF Ur Epithelial Cells (None Seen) /HPF Urine Bacteria (None Seen) /HPF Urine Culture Reflexed (NO) Monoscreen (NEGATIVE) Influenza Type A Ag (NEGATIVE) Influenza Type B Ag (NEGATIVE) RSV (PCR) (NEGATIVE) SARS-CoV-2 (PCR) (NEGATIVE) - Progress Progress: improved Progress Note: 09/06/24 14:48 My medical decision making and the assignment of at least moderate complexity is based on review of the patient's past medical history, review of the patient's medication list, reviewed patient drug allergy list, history present illness and physical findings on examination. The workup of this patient includes pl acement of intravenous line, infusion of normal saline solution, infusion of Zofran, infusion of Protonix, CBC, CMP, amylase, lipase, urinalysis, viral swabs, monotest, twelve-lead EKG, troponin level, CT scan of the head Differential diagnosis includes but is not limited to viral illness, pneumonia, dehydration, urinary tract infection, arrhythmia, myocardial infarction 09/06/24 16:18 I interpreted today's preliminary chest x-ray report and compared this days chest x-ray to the chest x-ray performed on 08/31/2024. There continues to be a subtle right basilar infiltrate that does not appear to be changed from the prior study. 09/06/24 16:[address] scan of the head without contrast was interpreted by the radiologist and I reviewed the impression. The impression states age-related involutional brain changes. No acute head/brain abnormality Counseled pt/family regarding: lab results, diagnosis, rad results Medical Desision Making - Diagnostic Testing Diagnostic test were ordered, analyzed, and reviewed by me: Yes Radiological Interpretation: Interpreted by me, Teleradiologist Report - Risk of complications The pt has a mod risk of morbidity or mortality based on: Need for prescription drug management - Departure Departure Disposition: Home Clinical Impression: Headache, Vomiting, Right pulmonary infiltrate on CXR Condition: Stable Critical Care Time: No Referrals: JIMMY TIMMONS MD [Primary Care Provider] - Follow up/PCP as directed Additional Instructions: Drink plenty of clear liquids before advancing your diet. Stop all other antibiotics. Begin the new antibiotic, cefdinir, starting tomorrow, 09/07/2024. Continue your other medications as prescribed. Call your primary care provider on 09/08/2024 to make arrangements for follow-up appointment for further evaluation management. Prescriptions: Ondansetron ODT 4 MG [Zofran Odt 4 mg] 4 mg PO Q6H PRN PRN #10 tablet PRN Reason: Vomiting Cefdinir 300 mg PO BID #14 cap Hydrocodone/Acetaminophen [Hydrocodone-Acetamn 7.5-325/15] 10 ml PO Q8H PRN #120 ml MDD 30 ml PRN Reason: Cough
[2024-09-06 13:24] VITALS: TEMP 97.7
[2024-09-06] MEDS ORDERED: Zofran 4 MG/2 ML VIAL ONE (14:33)
[2024-09-06] MEDS ORDERED: Sodium Chloride 0.9% 1000 ML 1,000 ML ONE (14:33)
[2024-09-06] MEDS ORDERED: PROTONIX 40 MG IV IV ONE (14:33)
[2024-09-06] MEDS: Zofran 4 MG/2 ML VIAL IV ONE (14:37)
[2024-09-06] MEDS: PROTONIX 40 MG IV IV ONE (14:37)
[2024-09-06] MEDS: Sodium Chloride 0.9% 1000 ML 1,000 ML IV STA (14:38)
[2024-09-06 14:41] LABS: Absolute Neutrophil Ct (ANC) 9.88 x10^3/uL (1.56-6.13); BASOPHIL % 0.6 % (0.1-1.2); Basophil (Absolute #) 0.07 x10^3/uL (0.01-0.08); Eosinophil % 0.4 % (0.7-5.8); Eosinophil (Absolute #) 0.05 x10^3/uL (0.04-0.36); Hematocrit 35.8 % (34.1-44.9); Hemoglobin 11.9 g/dL (11.2-15.7); IMMATURE GRAN # 0.26 x10^3u/L (0.001-0.031); IMMATURE GRAN % 2.1 % (0.001-0.429); Lymphocyte (Absolute #) 1.13 x10^3/uL (1.18-3.74); Lymphocytes % 9.2 % (19.3-51.7); Mean Cell Volume 88.6 fL (79.4-94.8); Mean Corpuscular Hemoglobin 29.5 pg (25.6-32.2); Mean Corpuscular Hgb Concent. 33.2 g/dL (32.2-35.5); Mean Platelet Volume 8.8 fL (9.4-12.3); Monocyte (Absolute #) 0.93 x10^3/uL (0.24-0.86); Monocytes % 7.5 % (4.7-12.5); Neutrophil % 80.2 % (34.0-71.1); Platelet Count 354 x10^3/uL (182-369); Red Blood Count 4.04 x10^6/uL (3.93-5.22); Red Cell Distribution Width 13.9 % (11.7-14.4); White Blood Count 12.3 x10^3/uL (3.98-10.04)
[2024-09-06 14:55] LABS: ALBUMIN 3.6 g/dL (3.5-5.0); ANION GAP 12.5 MEQ/L (5-15); BILIRUBIN,TOTAL 0.5 mg/dL (0.2-1.3); Calcium 9.7 mg/dL (8.4-10.2); Creatinine 1 0.67 mg/dL (0.52-1.04); EST GLOMERULAR FILTRATION RATE 99.4 ML/MIN; Potassium 3.9 mmol/L (3.5-5.1); Total Protein 6.2 g/dL (6.3-8.2)
[2024-09-06] MEDS ORDERED: TORAdol 30 mg Injection ONE (15:17)
[2024-09-06 15:20] LABS: INFLUENZA A NEGATIVE (NEGATIVE); INFLUENZA B NEGATIVE (NEGATIVE); RESPIRATORY SYNCTIAL VIRUS NEGATIVE (NEGATIVE); SARS-CoV-2 Xpert Express NEGATIVE (NEGATIVE)
[2024-09-06] MEDS: TORAdol 30 mg Injection IV ONE (15:25)
[2024-09-06 16:01] LABS: Appearance Clear (Clear); Bacteria None Seen /HPF (None Seen); Bilirubin Negative (Negative); Blood Negative (Negative); Epithelial Cells None Seen /HPF (None Seen); Glucose, Urine Negative (Negative); Hyaline Casts NONE SEEN /LPF (0-2); Ketones Negative (Negative); Leukocyte Esterase Negative (Negative); Nitrite Negative (Negative); Ph 6.5 (4.6-8.0); Protein,Urine Dip Negative (Negative); RBC 0-2 /HPF (0-5); Urobilinogen 0.2 mg/dL (0.2); WBC 0-2 /HPF (0-5)
--- NOTE | 2024-09-06 16:01 | XRAY ---
CLINICAL HISTORY: Severe headache COMPARISON: None. TECHNIQUE: Axial non-contrast CT scan of the brain was performed from the skull base to the high parietal region with coronal and sagittal reformats. One of the following dose reduction techniques were utilized for this exam: Automated exposure control, adjustment of the mA and/or kV according to patient size, use of iterative reconstruction. CTDI: 53mGGy, DLP: 1016.25mGy*cm. FINDINGS: Brain Parenchyma: Normal attenuation of the cerebral hemispheres, cerebellum, and brainstem. No evidence of acute infarct, hemorrhage, or mass effect. No abnormal areas of hypo- or hyperattenuation. Ventricular System: Ventricles are normal in size and configuration. No evidence of hydrocephalus or ventricular enlargement. Subarachnoid Spaces: Accnetuated cortical sulci and extra-axial CSF spaces. No evidence of subarachnoid hemorrhage or extra-axial fluid collections. Cerebellum and Brainstem: Normal size and signal. No masses, lesions, or areas of abnormal signal. Orbits: Normal appearance of the globes, optic nerves, and extraocular muscles. No evidence of orbital masses or abnormal signals. Sinuses: Clear paranasal sinuses. No evidence of sinusitis or mucosal thickening. Mastoid Air Cells: Clear mastoid air cells. No evidence of mastoiditis. Skull: Normal skull morphology. IMPRESSION: 1. No acute head/brain abnormality. 2. Age-related involutional brain changes. Electronically Signed by: Emile Urena MD. (09/06/2024 15:56:47 EST)
[2024-09-06] MEDS ORDERED: ROCEPHIN 1 GM / 100 ML NaCl 1 GM/100 ML IVPB IV ONE (16:32)
[2024-09-06] MEDS: ROCEPHIN 1 GM / 100 ML NaCl 1 GM/100 ML IVPB IV ONE (16:35)
[2024-09-06] MEDS ORDERED: MORPHINE SULFATE 4 MG INJ ONE (17:01)
[2024-09-06] MEDS: MORPHINE SULFATE 10 MG/ML IV ONE (17:02)
[2024-09-06] MEDS: MORPHINE SULFATE 4 MG INJ IV ONE (17:02)
[2024-09-06 17:03] VITALS: PULSE 83; RESP 18; O2SAT 95
[2024-09-06 17:07] VITALS: BP 149/95
--- NOTE | 2024-09-06 20:26 | XRAY ---
Indication: Cough. Comparison: August 31, 2024 Portable chest unchanged again demonstrating minimal right base infiltrate/atelectasis and left lung calcified granuloma. Remaining heart and lungs unremarkable. No new cardiopulmonary abnormalities.
== END 2024-09-06 17:13 | disposition home or self-care (01) ==
LOC: ED 12:55
DX: R11.2 Nausea with vomiting, unspecified (principal); R51.9 Headache, unspecified; R91.8 Other nonspecific abnormal finding of lung field; Z79.891 Long term (current) use of opiate analgesic; Z79.899 Other long term (current) drug therapy
CPT/HCPCS: 0241U; 36415; 70450; 71045; 80053; 81001; 82150; 83605; 83690; 84484; 85025; 86308; 96360; 96365; 96374; 96375; 99285; 99284; J0696; J1885; J2270; J2405